=== PATIENT | male | born 1980 | race Caucasian/White ===

== ENCOUNTER 2019-08-19 09:36 | Emergency (ER) | payer OTHER ==
[2019-08-19] MEDS ORDERED: ISOVUE-370 76%-LOCM 1 ML ONE (10:12)
[2019-08-19 10:27] LABS: #Basophils 0.1 thou/uL (0.0-0.2); #Eosinphils 0.2 thou/uL (0.0-0.7); #Lymphocytes 2.1 thou/uL (1.20-3.40); #Monocytes 1.1 thou/uL (0.11-0.59); #Neutrophils 8.6 thou/uL (1.40-6.50); %Basophils 0.4 % (0.0-1.0); %Eosinophils 1.3 % (0.0-10.0); %Lymphocytes 17.5 % (21.0-51.0); %Monocytes 8.9 % (0.0-10.0); %Neutrophils 71.9 % (42.0-75.0); Hemoglobin 15.8 g/dL (14.0-18.0); Mean Corpuscular HGB CONC 34.5 g/dL (32.0-36.0); Mean Corpuscular Hemoglobin 31.3 pg (27.0-31.0); Mean Corpuscular Volume 90.8 fL (78.0-98.0); Mean Platelet Volume 6.8 fL (7.4-10.4); Platelet Count 234 thou/uL (130-400); RBC Distribution Width 11.4 % (11.5-14.5); Red Blood Cell (RBC) Count 5.05 mill/uL (4.70-6.10)
[2019-08-19] MEDS ORDERED: Ondansetron PF 4 MG/2 ML Vial ONE (10:56)
[2019-08-19] MEDS ORDERED: Morphine 4 MG/ML VIAL ONE ×2 (10:56→12:37)
[2019-08-19 10:58] LABS: ALT (SGPT) 31 U/L (8-55); AST (SGOT) 22 U/L (5-34); Albumin 4.5 g/dL (3.5-5.0); Alkaline Phosphatase 108 U/L (40-110); Anion Gap 11 mmol/L (10-20); BUN (Urea Nitrogen) 11 mg/dL (8.9-20.6); Bilirubin, Total 1.2 mg/dL (0.2-1.2); Calc. Creatinine Clearance 0 mL/min (70-130); Calcium 9.4 mg/dL (7.8-10.44); Carbon Dioxide 28 mmol/L (22-29); Chloride 100 mmol/L (98-107); Estimated GFR-MDRD 71; Glucose 101 mg/dL (70-105); Lipase 7 U/L (8-78); Protein, Total 7.5 g/dL (6.0-8.3); Sodium 135 mmol/L (136-145)
[2019-08-19 11:52] LABS: Bilirubin Negative (Negative); Blood, Urine Negative (Negative); Clarity Clear (Clear); Glucose, Urine (Dipstick) Normal (Negative); Leukocyte Negative Leu/uL (Negative); Nitrite Negative (Negative); Protein, Urine (Dipstick) Negative (Neg-Trace); Urobilinogen Normal mg/dL (Less than 2)
--- NOTE | 2019-08-19 12:06 | CT ---
CT ABDOMEN AND PELVIS WITH IV CONTRAST: HISTORY: Lower abdominal pain. FINDINGS: There is evidence of old granulomatous disease in the lower chest. There are calcified granulomas in the spleen. No calcified gallstones are seen. There is fatty infiltration of the liver. There are calcifications in the medial limb of the right adrenal gland. The pancreas, left adrenal gl and and left kidney are normal. There is a 12 mm exophytic cyst arising from the right kidney. The small bowel loops are not abnormally dilated. A normal appearing appendix is present. There is si gmoid diverticulosis with thickening of the wall of the sigmoid colon and pericolonic inflammatory ch anges, consistent with sigmoid diverticulitis. No free air, free fluid, or lymphadenopathy is seen in the abdomen or pelvis. No abnormally loculated fluid collection is noted to suggest abscess formatio n. There are mild degenerative changes in the spine. A small hiatal hernia is present. IMPRESSION: Sigmoid diverticulitis. No evidence of abscess formation. POS: [facility]
[2019-08-19] MEDS ORDERED: Amoxicillin/Potassium Clav 875 MG TAB ONE (12:27)
== END 2019-08-19 13:55 | disposition home or self-care (01) ==
LOC: ERS 09:36
DX: K57.32 Diverticulitis of large intestine without perforation or abscess without bleeding (principal); I10 Essential (primary) hypertension; F41.9 Anxiety disorder, unspecified; F32.9 Major depressive disorder, single episode, unspecified; Z79.899 Other long term (current) drug therapy
CPT/HCPCS: 36415; 74177; 80053; 81003; 83690; 85025; 87086; 96361; 96374; 96375; 96376; J2270; J2405; Q9966